=== PATIENT | female | born 1995 | race Caucasian/White ===

== ENCOUNTER 2019-08-30 16:00 | Inpatient (IN) | payer MEDICAID ==
[~2019-08-30] VITALS: Ht 167.6 cm; Wt 107.2 kg
[2019-08-30 16:12] VITALS: Ht 167.6 cm; Wt 107.2 kg
[2019-08-30 17:02] LABS: BASOPHIL % 0.3 % (0-2)
[2019-08-30 17:03] LABS: PLATELET COUNT 558 x10^3mcL (130-400); RED CELL DISTRIBUTION WIDTH 15.5 % (11.5-14.5); microscopic required? YES; urine erythrocyte TRACE (NEGATIVE)
[2019-08-30 17:11] LABS: CARBON DIOXIDE 29.5 mmol/L (21-32); CHLORIDE SERUM 105 mmol/L (98-107); CREATININE SERUM 0.7 mg/dL (0.6-1.0); GFR1 > 60 mL/min; GLUCOSE SERUM 89 mg/dL (74-106); POTASSIUM SERUM 4.2 mmol/L (3.5-5.1); SODIUM SERUM 141 mmol/L (136-145)
[2019-08-30 17:14] LABS: AMPHETAMINE QUAL UR POSITIVE (See below)
[2019-08-30 17:24] LABS: ALKALINE PHOSPHATASE 162 U/L (46-116); ALT/SGPT 87 U/L (14-59); AST/SGOT 24 U/L (15-37); BILIRUBIN TOTAL 0.34 mg/dL (0.20-1.00); LIPASE 82 IU/L (73-393); T4(THYROXINE) 7.6 ug/dL (4.7-13.3); TOTAL PROTEIN, SERUM 7.7 g/dL (6.4-8.2)
[2019-08-30 17:25] LABS: ALBUMIN 2.8 g/dL (3.4-5.0); CHOLESTEROL 209 mg/dL (<200)
[2019-08-30 21:44] VITALS: BP 121/67
[2019-08-31 05:29] VITALS: BP 100/66
[2019-08-31 07:08] LABS: CALCIUM 6.8 mg/dL (8.5-10.1); CARBON DIOXIDE 27.7 mmol/L (21-32); CHLORIDE SERUM 109 mmol/L (98-107); CREATININE SERUM 0.6 mg/dL (0.6-1.0); GFR1 > 60 mL/min; GLUCOSE SERUM 91 mg/dL (74-106); PHOSPHOROUS 4.1 mg/dL (2.5-4.9); POTASSIUM SERUM 4.5 mmol/L (3.5-5.1); SODIUM SERUM 143 mmol/L (136-145)
[2019-08-31 07:50] VITALS: BP 100/67
[2019-08-31 08:45] LABS: BASOPHIL % 0.5 % (0-2)
[2019-08-31 08:51] LABS: PLATELET COUNT 510 x10^3mcL (130-400); RED CELL DISTRIBUTION WIDTH 15.6 % (11.5-14.5)
[2019-08-31 11:47] VITALS: BP 116/81
[2019-08-31 16:08] VITALS: BP 107/61
[2019-08-31 19:18] VITALS: BP 112/64
[2019-09-01 04:28] VITALS: BP 100/56
[2019-09-01 06:38] LABS: CALCIUM 7.8 mg/dL (8.5-10.1); CARBON DIOXIDE 25.2 mmol/L (21-32); CREATININE SERUM 0.7 mg/dL (0.6-1.0); GFR1 > 60 mL/min; GLUCOSE SERUM 79 mg/dL (74-106); PHOSPHOROUS 3.5 mg/dL (2.5-4.9)
[2019-09-01 07:02] LABS: BASOPHIL % 0.3 % (0-2)
[2019-09-01 07:18] LABS: PLATELET COUNT 498 x10^3mcL (130-400); RED CELL DISTRIBUTION WIDTH 15.7 % (11.5-14.5)
[2019-09-01 07:33] LABS: POTASSIUM SERUM 3.9 mmol/L (3.5-5.1)
[2019-09-01 07:51] LABS: CHLORIDE SERUM 109 mmol/L (98-107); SODIUM SERUM 143 mmol/L (136-145)
[2019-09-01 08:35] LABS: ERYTHROCYTE SED RATE 93 mm/hr (0-20)
[2019-09-01] MEDS ORDERED: IBUPROFEN400 MG PO (10:24)
[2019-09-01] MEDS ORDERED: APAP/HYDROCODON1 T13 PO (10:26)
[2019-09-01 11:51] VITALS: BP 99/60
[2019-09-01 12:08] VITALS: BP 132/74
== END 2019-09-01 13:57 | disposition home or self-care (01) | DRG 203 ==
LOC: ED 16:00 → DU 20:30
PROVIDERS: Emergency Medicine; ADMIT Internal Medicine
DX: M94.0 Chondrocostal junction syndrome [Tietze] (principal); E44.0 Moderate protein-calorie malnutrition; F11.20 Opioid dependence, uncomplicated; R74.0 Nonspecific elevation of levels of transaminase and lactic acid dehydrogenase [LDH]; D63.8 Anemia in other chronic diseases classified elsewhere; F12.10 Cannabis abuse, uncomplicated; F15.10 Other stimulant abuse, uncomplicated; F17.210 Nicotine dependence, cigarettes, uncomplicated; E66.9 Obesity, unspecified; Z68.34 Body mass index [BMI] 34.0-34.9, adult; Z98.1 Arthrodesis status
CPT/HCPCS: 83880; 85378; 99406; G0378; J1885; J7030; Q0092; Q9967